=== PATIENT | male | born 1965 | race African-American/Black ===

== ENCOUNTER → 2022-09-07 | Outpatient (CLI) | payer OTHER ==
[2022-09-07 08:40] LABS: BASOPHIL % 0.5 % (0.0-0.2); EOSINOPHIL # 0.8 10^3/uL (0.0-0.2); EOSINOPHIL % 13.4 % (0.0-5.0); LYMPHOCYTES # 2.36 10^3/uL1 (1.0-4.8); LYMPHOCYTES % 41.5 % (24.0-44.0); MEAN CORP HGB 32.1 pg (26-34); MONOCYTES # 0.3 10^3/uL (0.3-0.8); MONOCYTES % 4.9 % (5.0-12.0); NEUTROPHIL # 2.3 10^3/uL (1.8-7.7); NEUTROPHILS % 39.5 % (41.0-85.0); RED CELL DISTRIBUTION WIDTH 11.9 % (11.5-14.5)
[2022-09-07 09:29] LABS: CARBON DIOXIDE 31.7 mmol/L (20.0-32)
== END | disposition home or self-care (01) ==
LOC: LAB 08:23
PROVIDERS: ATTEND Internal Medicine Interventional Cardiology
DX: Z00.00 Encounter for general adult medical examination without abnormal findings (principal)
CPT/HCPCS: 36415; 80053; 80061; 82306; 83036; 84153; 84439; 84443; 85025

== ENCOUNTER → 2023-08-02 | Outpatient (CLI) | payer OTHER | END | disposition home or self-care (01) | LOC: RAD 13:21 | PROVIDERS: ATTEND Internal Medicine Interventional Cardiology | DX: I34.0 Nonrheumatic mitral (valve) insufficiency (principal); Z82.49 Family history of ischemic heart disease and other diseases of the circulatory system | CPT/HCPCS: 93306 ==

== ENCOUNTER → 2023-09-06 | Outpatient (CLI) | payer OTHER | END | disposition home or self-care (01) | LOC: RAD 08:04 | PROVIDERS: ATTEND Internal Medicine Interventional Cardiology | DX: Z82.49 Family history of ischemic heart disease and other diseases of the circulatory system (principal); I10 Essential (primary) hypertension; I34.0 Nonrheumatic mitral (valve) insufficiency | CPT/HCPCS: 93017 ==

== ENCOUNTER → 2024-09-25 | Outpatient (CLI) | payer OTHER | END | disposition home or self-care (01) | LOC: RAD 07:48 | PROVIDERS: ATTEND Nurse Practitioner Family | DX: I65.23 Occlusion and stenosis of bilateral carotid arteries (principal); I10 Essential (primary) hypertension; R42 Dizziness and giddiness; R55 Syncope and collapse; Z82.49 Family history of ischemic heart disease and other diseases of the circulatory system | CPT/HCPCS: 93306; 93880 ==